=== PATIENT | female | born 1985 | race Caucasian/White ===

== ENCOUNTER 2020-05-26 10:34 | Outpatient (CLI) | payer OTHER, SELFPAY ==
[2020-05-26 11:01] LABS: Hematocrit 34.6 % (37.0-47.0); Hemoglobin 11.3 g/dL (12.0-15.0); Mean Corpuscular HGB Conc 32.7 g/dl (32-36); Mean Corpuscular Hemoglobin 27.4 pg (26-34); Mean Platelet Volume 9.8 fl (7.4-10.4); Platelet Count Result 318 k/mm3 (150-375); Red Blood Count 4.12 M/mm3 (4.2-5.4); Red Cell Distribution Width 14.7 % (11.5-14.5); White Blood Count 13.3 K/mm3 (4.5-10.0)
[2020-05-28 07:10] LABS: Rapid Plasma Reagin Non-Reactive (NonReactive)
== END 2020-05-26 10:35 | disposition home or self-care (01) ==
PROVIDERS: PCP Internal Medicine; Visit Provider Obstetrics & Gynecology
DX: Z34.93 Encounter for supervision of normal pregnancy, unspecified, third trimester (principal); Z3A.00 Weeks of gestation of pregnancy not specified
CPT/HCPCS: 36415; 85027; 86592; 86850; 86900; 86901

== ENCOUNTER 2020-05-28 05:30 | Inpatient (IN) | payer OTHER, SELFPAY ==
--- NOTE | 2020-05-23 11:08 | PM.IMHP ---
H&P: HPI History of Present Illness Date/Time: 05/23/20 11:08 Chief Complaint: repeat section and tubal Narrative: 2 para 1 who is admitted at term for repeat section and tubal ligation. Her has been uncomplicated. She desires permanent and irreversible sterilization. S and benefits reviewed in full per minutes was reviewed in full. She had all questions answered asked to proceedTifyuly Morales is a 34 year old female Review of Systems Review of Systems: All systems reviewed & are unremarkable except as noted in HPI and below PMFSH Family History Family History Other No pertinent family history Social History Social History Substance use: never Gender identity (if verbalized by the patient): Female Spiritual care concerns: No Meds Home Medications and Allergies Home Medications Medication Instructions Recorded Confirmed Type PNV cmb#95-ferrous fumarate-FA 1 tablet PO DAILY 05/12/20 05/12/20 History [] sertraline 50 mg PO DAILY 05/12/20 05/12/20 History Allergies Allergy/AdvReac Type Severity Reaction Status Date / Time cefaclor Allergy Unknown Verified 10/17/18 12:45 Exam Const: General: no acute distress Eyes: General: appearance normal, both eyes and all related structures Neck: Neck: supple and no JVD Thyroid: thyroid normal Resp: Effort & Inspection: normal respiratory effort Auscultation: clear to auscultation bilaterally Cardio: Rate: regular rate Rhythm: regular rhythm GI: Inspection: non-distended GI Palp: Yes Soft to palpation, No Tenderness to palpation present (GI) and No Guarding due to palpation present (GI) Auscultation: normal bowel sounds : General: Yes bladder normal to palpation External Female Exam: normal external appearance Speculum Exam - Vagina: normal vaginal discharge and No vaginal bleeding Speculum Exam - Cervix: nontender Bimanual exam- vagina & uterus: bladder normal to palpation and No Cervical tenderness present OB/external & speculum: No vaginal bleeding Skin: General skin exam: no rashes or lesions noted Extrem: General: normal to inspection and no edema Psych: Mental Status: mental status grossly normal Affect: normal affect Assessment and Plan Additional Plan impression: Term with previous section and desires permanent sterilization Plan: Repeat section and bilateral tubal removal
[2020-05-28] VITALS (55 sets, daily range): BP systolic 88–134; BP diastolic 50–94; PULSE 55–151; RESP 15–18; TEMP 36.6–37.2; O2SAT 90–100
--- NOTE | 2020-05-28 06:21 | WPDHPUPDATE1 ---
History and Physical Update Update Date/Time: 05/28/20 06:21 History and Physical has been reviewed, including an updated exam of the patient. There are NO changes in the patient's condition. Risks, benefits, and alternatives have been discussed and questions answered. Patient agrees to proceed with procedure.
--- NOTE | 2020-05-28 06:30 | LDADM ---
This patient, Miroslava Morales, was admitted to Labor/Delivery/Recovery 120 on 05/28/20 at 05:30. Plans for labor, pain management and were discussed with patient. Patient/family oriented to hospital policies and general routines including ID bracelet, bed and alarms, visiting hours, pain management, procedures, bathroom and other care routines, personal items, smoking policy, room service/diet and guest tray routines, security routines, and visiting hours. Patient/Family are encouraged to report perceived risks to care and to ask questions if they do not understand what they are told or what they should do. See OBIX for further documentation.
--- NOTE | 2020-05-28 06:38 | WPDANESEPPF ---
Anes - Initial Pre Proc Eval Procedure: Operation Date: 05/28/20 07:30 Proposed Procedures p Repeat Section, Bilateral Tubal Ligation With Cautery - Jose Toro MD Date/Time: 05/28/20 06:38 Surgeon: Jose Toro MD Pre Op Diagnosis: C/S Patient Data Age: 34 Gender: F Height: 5 ft 4 in Weight: 80.6 kg Last Vital Signs Pulse 89 05/28/20 06:22 BP 115/86 05/28/20 06:22 Allergies Allergy/AdvReac Type Severity Reaction Status Date / Time cefaclor Allergy Unknown Verified 10/17/18 12:45 Home Medications Medication Instructions Recorded Confirmed Type PNV cmb#95-ferrous fumarate-FA 1 tablet PO DAILY 05/12/20 05/12/20 History [] sertraline 50 mg PO DAILY 05/12/20 05/12/20 History hydrocodone-acetaminophen [[place]] 1 tablet PO Q4H PRN #30 tablet 05/28/20 Rx Patient hx anesthesia problems: none Family hx anesthesia problems: none PMFSH Surgical History Surgical History History of section Family History Family History Other No pertinent family history Social History Social History Substance use: never Gender identity (if verbalized by the patient): Female Spiritual care concerns: No Anes - Eval Final PreProcedure Day of Procedure 05/28/20 06:38 Patient weight: overweight Heart: regular rate and rhythm Lungs: clear to auscultation Airway: Mallampati scale class 1 Neurological: alert and oriented Last oral intake: >/= 8 hours ASA classification: II Emergent: no Anesthetic plan: proceed Anesthesia type and monitoring: regional spinal and standard monitoring Informed Consent: The patient's anesthetic plan and its attendant risks and benefits were discussed with the patient/family/POA. Questions were solicited and answers provided to the satisfaction of the patient/family/POA.
[2020-05-28] MEDS: LACTATED RINGERS 1,000 ML 125 ML IV CONT (06:48)
[2020-05-28] MEDS: CLINDAMYCIN 900 MG/D5W 50 ML 900 MG/50 ML PIGGYBACK 50 MG IVPB (07:09)
--- NOTE | 2020-05-28 08:07 | P.OP_ITS ---
Procedure Note - Detailed Date of procedure: 05/28/20 Pre-op diagnosis: C/S Surgeon: Jose Toro MD Postop diagnosis: Term /previous section /a desires permanent sterilization Procedure: Repeat low-transverse section/bilateral tubal ligation via modified [place] method Q BL: 325cc Findings: Male , Apgars 9 and 9 at 1 and 5 minutes respectively 8 lb 6 oz. Anesthesia: Spinal Complications: None Description of procedure.: The patient was prepped and draped in the normal sterile fashion placed in the supine position. Under excellent spinal anesthetic the abdomen was entered in Pfannenstiel fashion progressive layers to the fascia. Fascia was incised in upward outward fashion bilaterally. Underlying muscles prior to. He mm Janell clamps. This was opened superiorly then inferiorly to the dome of the bladder. Bladder blade was placed. A bladder flap formed. The bladder blade returned. Low-transverse incision made in the head delivered in the RODRIGO position. Anterior posterior shoulder delivered spontaneously. Cord clamped x2 and cut infant passed off the table with excellent cry. Placenta was delivered intact manually. Uterus delivered on the abdomen wrapped in a moist towel. After assuring no membranes or debris made in the uterus, the uterus was closed with continuous running locking 0 Vicryl from lateral edge lateral edge followed by a 2nd imbricating running locking 0 Vicryl from lateral edge to lateral edge. Hemostasis was assured. The right fallopian tube was grasped a good knuckle of tube formed and free tied at its midportion the peritoneum between was pierced in the distal and proximal portions free tied with 0 chromic bilaterally the portion of tube between cut passed off the table and passed off as portion of right fallopian tube. Hemostasis was assured the left fallopian tube was grasped at its midpor tion a good knuckle of tube free tied with 0 chromic. The peritoneum between pierced and the distal and proximal legs were free tied with 0 chromic. The portion between cut and passed off as portion of left fallopian tube. Hemostasis was assured the uterine incision inspected 1 last time noted be hemostatic. In the uterus returned to the abdomen. The laps removed and accounted for and blood loss estimated. The fascia closed with continuous running 0 Vicryl from lateral edge to midline bilaterally. Irrigation subcutaneous layer and the skin closed with 4 Monocryl glue. The patient was t aken to recovery in satisfactory condition. All sponge, needle, instrument counts were correct. There were no immediate complications
[2020-05-28] MEDS: OXYTOCIN 30 UNITS/NS 500 ML 30 UNITS/500 ML BAG 125 UNITS IV CONT (08:40)
[2020-05-28] MEDS: fentaNYL CITRATE INJ (*CRX) 100 MCG/2 ML VIAL 25 MCG IV PUSH (10:07)
--- NOTE | 2020-05-28 11:15 | PC.NURSE ---
Patient transferred to post room #281 via stretcher. Support person present. Oriented to unit, room, information board, rooming in, admission packet and security measures. Patient verbalizes understanding.
[2020-05-28] MEDS: KETOROLAC 30 MG/ML VIAL (*BKC) IV PUSH (11:34)
[2020-05-28] MEDS: ALPRAZolam (*CRX) 0.5 MG TABLET PO (12:17)
[2020-05-28] MEDS: DEXTROSE 5%/0.45% SOD CHL 1,000 ML 125 ML IV CONT (13:17)
--- NOTE | 2020-05-28 14:02 | PC.NURSE ---
Infant remains at nurse's station, mom bottlefeeding at this time. Mom currently napping. Was in pain after arriving to the unit.
[2020-05-28] MEDS: SIMETHICONE 80 MG TAB.CHEW PO ×2 (17:33→23:24)
[2020-05-28] MEDS: DOCUSATE SODIUM 100 MG CAPSULE PO (17:33)
[2020-05-28] MEDS: HYDROcodone/acetaminophen (*CRX) 10-325 MG TABLET 1 TAB PO (17:34)
[2020-05-28] MEDS: IBUPROFEN 600 MG TABLET PO ×2 (17:34→23:23)
[2020-05-28] MEDS: HYDROcodone/acetaminophen (*CRX) 5-325 MG TABLET 1 TAB PO (23:24)
[2020-05-29 00:35] VITALS: BP 115/70; PULSE 67; RESP 16; TEMP 36.2; O2SAT 98
[2020-05-29 04:35] VITALS: BP 96/56; PULSE 72; RESP 16; TEMP 36.3; O2SAT 97
[2020-05-29 04:53] LABS: Basophils Absolute Auto 0.1 K/mm3 (0.0-0.1); Basophils Percent Auto 0.3 % (0.2-1.2); Eosinophils Absolute Auto 0.1 K/mm3 (0-0.3); Eosinophils Percent Auto 0.5 % (0-4.4); Hematocrit 27.7 % (37.0-47.0); Hemoglobin 8.8 g/dL (12.0-15.0); Immature Granulocyte Percent A 1.7 % (0-0.5); Lymphocytes Absolute Auto 2.62 K/mm3 (0.9-3.2); Lymphocytes Percent Auto 11.4 % (18.3-44.2); Mean Corpuscular HGB Conc 31.8 g/dl (32-36); Mean Corpuscular Hemoglobin 26.7 pg (26-34); Mean Corpuscular Volume 83.9 fl (80-100); Mean Platelet Volume 9.8 fl (7.4-10.4); Monocytes Absolute Auto 2.2 K/mm3 (0.1-0.6); Monocytes Percent Auto 9.8 % (2.6-8.5); Neutrophils Absolute Auto 17.5 K/mm3 (1.3-6.7); Neutrophils Percent Auto 76.3 % (45.5-73.1); Platelet Count Result 292 k/mm3 (150-375); Red Cell Distribution Width 14.7 % (11.5-14.5); White Blood Count 22.9 K/mm3 (4.5-10.0)
--- NOTE | 2020-05-29 06:06 | PM.OBPNVD ---
OB - PN: Subj Subjective Date/time seen: 05/29/20 06:06 Patient comments: no complaints and pain well controlled baby status: doing well and nursing well OB - PN: Obj Data Labs CBC & Chem 7: 05/29/20 04:43 Labs: Laboratory Results - last 24 hr 05/29/20 04:43 WBC 22.9 H RBC 3.30 L Hgb 8.8 L Hct 27.7 L MCV 83.9 MCH 26.7 MCHC 31.8 L RDW 14.7 H Plt Count 292 MPV 9.8 Immature Gran % (Auto) 1.7 H Neut % (Auto) 76.3 H Lymph % (Auto) 11.4 L [place] % (Auto) 9.8 H Eos % (Auto) 0.5 Baso % (Auto) 0.3 Lymph # (Auto) 2.62 [place] # (Auto) 2.2 H Eos # (Auto) 0.1 Baso # (Auto) 0.1 Abs Immat Gran (auto) 0.40 H Absolute Neuts (auto) 17.5 H Absolute Nucleated RBC 0.0 Nucleated RBC % 0.0 OB - PN A/P Plan day: 1 Plan: routine care Time Spent With Patient Time: Total time spent is greater than 50% in coordination of care (as documented) at patient's floor/unit and/or counseling patient: Time with patient: less than 15 minutes Review of Systems Review of Systems: All systems reviewed & are unremarkable except as noted in HPI and below Exam Const: General: no acute distress Eyes: General: appearance normal, both eyes and all related structures Neck: Neck: supple and no JVD Thyroid: thyroid normal Resp: Effort & Inspection: normal respiratory effort Auscultation: clear to auscultation bilaterally Cardio: Rate: regular rate Rhythm: regular rhythm GI: Inspection: non-distended and incision (cdi) GI Palp: Yes Soft to palpation, No Tenderness to palpation present (GI) and No Guarding due to palpation present (GI) Auscultation: normal bowel sounds : General: Yes bladder normal to palpation External Female Exam: normal external appearance Speculum Exam - Vagina: normal vaginal discharge and No vaginal bleeding Speculum Exam - Cervix: nontender Bimanual exam- vagina & uterus: bladder normal to palpation and No Cervical tenderness present OB/external & speculum: No vaginal bleeding Skin: General skin exam: no rashes or lesions noted Extrem: General: normal to inspection and no edema Psych: Mental Status: mental status grossly normal Affect: normal affect
[2020-05-29] MEDS: IBUPROFEN 600 MG TABLET PO ×3 (06:14→21:00)
[2020-05-29] MEDS: HYDROcodone/acetaminophen (*CRX) 5-325 MG TABLET 1 TAB PO ×5 (06:15→21:00)
[2020-05-29 07:50] VITALS: BP 109/74; PULSE 65; RESP 16; TEMP 36.4; O2SAT 100
[2020-05-29] MEDS: POLYSACCHARIDE IRON COMPLEX 150 MG CAPSULE PO ×2 (07:52→17:18)
[2020-05-29] MEDS: DOCUSATE SODIUM 100 MG CAPSULE PO ×2 (07:53→17:18)
[2020-05-29] MEDS: SERTRALINE HCL 50 MG TABLET PO (07:53)
[2020-05-29] MEDS: SIMETHICONE 80 MG TAB.CHEW PO ×4 (07:53→22:07)
[2020-05-29] MEDS: MULTIVIT/MIN/PREN/FOL AC/IRON TABLET 1 TAB PO (07:53)
--- NOTE | 2020-05-29 07:58 | WPDANLDPN2 ---
Anes-Prog Note L&D Date/Time: 05/29/20 07:58 Comfortable throughout: section Neuraxial method: spinal Epidural/Spinal procedure site: clean & non-tender Neuro status: Neuro function grossly intact. Cardiovascular status: normal Respiratory status: normal Airway patency: baseline Mental status: baseline Post-Op hydration status: normal Vital Signs: Last Vital Signs Temp 36.3 C L 05/29/20 04:35 Pulse 72 05/29/20 04:35 Resp 16 05/29/20 04:35 BP 96/56 L 05/29/20 04:35 Pulse Ox 97 05/29/20 04:35 Pain score (VAS): 0 I/O: Intake & Output 05/28/20 05/28/20 05/29/20 15:59 23:59 07:59 Intake Total 1100 1513 1600 Output Total 368 1250 5415 Balance 732 263 -1175 Post-procedural complaints: none Patient feedback: Patient satisfied with anesthetic care.
--- NOTE | 2020-05-29 07:58 | WPDANLDNPN2 ---
Anes-Prog Note L&D-Neuraxial Date/Time: 05/29/20 07:58 Neuraxial medications: intrathecal PF morphine Opiod-related complaints: none Patient feedback: Patient satisfied with post-operative pain management.
--- NOTE | 2020-05-29 09:51 | PC.NURSE ---
Consulted with patient, reviewed feeding cues, frequencies, duration of feedings, feeding elimination flow sheet, and signs of adequate intake. Mom is bottle and infant. Mom encouraged to call out with next breastfeed to have feeding assessed. Reviewed supply and demand of breastmilk production with Mom & Dad. Offered to bring in pump and and help mom start pumping, mom declines. Nipple care reviewed. Instructed mother to call out for RN assistance if she is unable to latch for feeding or she has discomfort with nursing. Instructed feeding should be initiated three hours from start of last feeding or if feeding cues are noted before when . Mother voiced understanding of information shared.
--- NOTE | 2020-05-29 10:54 | PC.NURSE ---
Primary RN states she was at bedside and mom was struggling to get to breast. In to see patient and mom states she was giving the baby a bottle and stated that she didn't want to attempted at breast again for this feeding. Mom encouraged to call out if she would like assistance with the next feeding.
[2020-05-29 20:00] VITALS: BP 111/69; PULSE 78; RESP 16; TEMP 36.8; O2SAT 98
[2020-05-30] MEDS: IBUPROFEN 600 MG TABLET PO ×2 (03:00→10:11)
[2020-05-30] MEDS: SIMETHICONE 80 MG TAB.CHEW PO ×4 (03:00→13:43)
[2020-05-30] MEDS: HYDROcodone/acetaminophen (*CRX) 5-325 MG TABLET 1 TAB PO ×4 (03:00→13:42)
--- NOTE | 2020-05-30 06:33 | P.PNOB_ITS ---
OB - PN: Subj Subjective Date/time seen: 05/30/20 06:33 Patient comments: no complaints and pain well controlled baby status: doing well and nursing well OB - PN: Obj Data Labs CBC & Chem 7: 05/29/20 04:43 OB - PN A/P Plan day: 2 Plan: routine care Time Spent With Patient Time: Total time spent is greater than 50% in coordination of care (as francisco ndiaye) at patient's floor/unit and/or counseling patient: Time with patient: less than 15 minutes Review of Systems Review of Systems: All systems reviewed & are unremarkable except as noted in HPI and below Exam Const: General: no acute distress Eyes: General: appearance normal, both eyes and all related structures Neck: Neck: supple and no JVD Thyroid: thyroid normal Resp: Effort & Inspection: normal respiratory effort Auscultation: clear to auscultation bilaterally Cardio: Rate: regular rate Rhythm: regular rhythm GI: Inspection: non-distended GI Palp: Yes Soft to palpation, No Tenderness to palpation present (GI) and No Guarding due to palpation present (GI) Auscultation: normal bowel sounds : General: Yes bladder normal to palpation External Female Exam: normal external appearance Speculum Exam - Vagina: normal vaginal discharge and No vaginal bleeding Speculum Exam - Cervix: nontender Bimanual exam- vagina & uterus: bladder normal to palpation and No Cervical tenderness present OB/external & speculum: No vaginal bleeding Skin: General skin exam: no rashes or lesions noted Extrem: General: normal to inspection and no edema Psych: Mental Status: mental status grossly normal Affect: normal affect
[2020-05-30] MEDS: POLYSACCHARIDE IRON COMPLEX 150 MG CAPSULE PO (06:34)
[2020-05-30] MEDS: MULTIVIT/MIN/PREN/FOL AC/IRON TABLET 1 TAB PO (06:34)
[2020-05-30] MEDS: SERTRALINE HCL 50 MG TABLET PO (06:34)
[2020-05-30] MEDS: DOCUSATE SODIUM 100 MG CAPSULE PO (06:35)
[2020-05-30 07:25] VITALS: BP 108/71; PULSE 67; RESP 18; TEMP 36.8; O2SAT 96
--- NOTE | 2020-05-30 13:08 | PM.DS ---
DS: Admitting Diagnosis Admitting Diagnosis Admitting Diagnosis: t id a term IUP/desires sterilization DS: Summary Hospital Course Hospital Course: Unremarkable Time Spent with Patient Time attestation: Total time spent providing and/or coordinating discharge services: the patient was admitted for repeat section tubal ligation. Her postop course was unremarkable. She remained afebrile. She was , waited the difficulty, eating, ambulating and generally without complaints. Exam Const: General: no acute distress Eyes: General: appearance normal, both eyes and all related structures Neck: Neck: supple and no JVD Thyroid: thyroid normal Resp: Effort & Inspection: normal respiratory effort Auscultation: clear to auscultation bilaterally Cardio: Rate: regular rate Rhythm: regular rhythm GI: Inspection: non-distended GI Palp: Yes Soft to palpation, No Tenderness to palpation present (GI) and No Guarding due to palpation present (GI) Auscultation: normal bowel sounds : General: Yes bladder normal to palpation External Female Exam: normal external appearance Speculum Exam - Vagina: normal vaginal discharge and No vaginal bleeding Speculum Exam - Cervix: nontender Bimanual exam- vagina & uterus: bladder normal to palpation and No Cervical tenderness present OB/external & speculum: No vaginal bleeding Skin: General skin exam: no rashes or lesions noted Extrem: General: normal to inspection and no edema Psych: Mental Status: mental status grossly normal Affect: normal affect DS: Data Data Completed and Pending Completed studies during hospitalization: Pending at discharge 05/28/20 08:34 Surgical [PTH] Routine Discharge Plan Discharge Attending physician on discharge: Jose Toro Discharging Clinician: Jose Toro Patient Disposition: Home, Self-Care Activity: may shower, no straining, may drive after 2 weeks and pelvic rest Diet: heart healthy Wound Care Instructions: follow printed instructions Discharge Instructions: Education: Mom and Baby Guide Given to: Mother Follow-Up: Call your delivering provider's office for an appointment to be seen in: 6 Weeks [facility]. Appointment Date/Time: June 01, 2020 at 10:00 am What to expect at your follow-up visit: Physical Assessment Call [phone] if you are unable to keep your appointment time. BREAST CARE: * Wear a snug supportive bra. * For engorgement discomfort: Breast Feeding: * Apply warm moist washcloths * Express milk as needed to relieve engorgement * Wear loose clothing * For sore nipples: * Identify correct latch-on * Apply warm moist washcloths before and after nursing * Air dry nipples after nursing * May apply Lansinoh cream to nipples ABDOMINAL INCISION: (if applicable) * Allow incision to air dry * Do NOT use lotions for powders on your incision * When showering, allow soap and water to run over the incision, but do not wash incision EPISIOTOMY/PERINEAL CARE: * Until bleeding stops, use your tong bottle after urinating * Change your pad frequently throughout the day * You may take sitz baths several times a day (fill your bathtub with warm water and soak for 20 minutes.) Do NOT bathe in the water * No tub baths until seen by your physician - You may shower ACTIVITY: * Rest as much as possible. * Do not exercise or lift anything heavier than your baby (such as laundry or other children.) * Avoid stairs or driving as much as possible. * Do not put anything into the vagina. No douching, tampons, or sexual activity until seen by physician. NOTIFY PHYSICIAN IF YOU HAVE ANY QUESTIONS OR IF ANY OF THE FOLLOWING SYMPTOMS OCCUR: * If your incision becomes red, swollen, or more painful than what you have
[2020-06-01 10:24] VITALS: BP 129/74; PULSE 94; RESP 20; TEMP 37; O2SAT 100
== END 2020-05-30 14:05 | disposition home or self-care (01) | DRG 785 ==
LOC: ANHLDR 05:34 → ANHOB2 10:25
PROVIDERS: Admitting Provider Obstetrics & Gynecology; PCP Internal Medicine; Visit Provider Obstetrics & Gynecology
PROC: 10D00Z1 Extraction of Products of Conception, Low, Open Approach (ICD-10-PCS; CPT 59514; principal; 2020-05-28 07:30)
DX: O34.211 Maternal care for low transverse scar from previous cesarean delivery (principal); Z30.2 Encounter for sterilization; Z3A.39 39 weeks gestation of pregnancy; Z37.0 Single live birth
CPT/HCPCS: 36415; 85025; 85027; 86592; 86850; 86900; 86901; 88302; A9270; J0131; J1100; J1885; J2274; J2370; J2405; J2590; J3010; J7120

== ENCOUNTER 2020-12-03 17:19 | Emergency (ER) | payer OTHER, SELFPAY ==
[2020-12-03 17:30] VITALS: BP 132/85; PULSE 75; RESP 18; TEMP 37.1; O2SAT 100
--- NOTE | 2020-12-03 17:39 | ED.GENADULT ---
HPI - General Adult General Chief complaint: Upper Respiratory Infection Stated complaint: upper respiratory infection Time Seen by Provider: 12/03/20 17:39 Source: patient and RN notes reviewed Mode of arrival: ambulatory Limitations: no limitations History of Present Illness HPI narrative: 35-year-old female presents with complaints of upper respiratory infection, some facial congestion, facial pressure, and intermittent headache (not the worst of her life) for the past 21 days. ?Miroslava reports increasing symptoms even after being treated with a Z-pack. Mucinex-D without relief. No facial swelling.? No cough or chest congestion. ?Nasal congestion and rhinorrhea. ?No sore throat. No high fevers, drooling, neck or throat swelling. No voice change. ?No nausea, vomiting, or abdominal pain. ?Tolerating liquids well. ?Denies chills, dyspnea, difficulty swallowing, jaw pain, dental pain, foreign body sensation, and rash. ?No chest pain or shortness of breath. LMP 11/30/2020. Remains active. The patient reports she has not been diagnosed with COVID-19. The patient reports she is not waiting for the results of a COVID-19 lab test. The patient reports she does not have weakness, fatigue, or myalgia. The patient reports he does not have any loss of taste and diarrhea. Denies recent traveling. Denies concerns for COVID-19 or exposures. At this time, the patient is not suspected of having COVID-19.? ? Some parts of this dictation were generated by voice recognition software and may contain typographical and/or grammatical inaccuracies. Related Data Home Medications Medication Instructions Recorded Confirmed sertraline 50 mg PO DAILY 05/12/20 12/03/20 Allergies Allergy/AdvReac Type Severity Reaction Status Date / Time cefaclor Allergy Mild Hives Verified 12/03/20 17:37 Review of Systems Review of Systems: Narrative: CONSTITUTIONAL: Denies fever, chills, sweats. EYES: Denies visual changes, redness, discharge. ENT: Complains of rhinorrhea, congestion, facial congestion and pressure. Denies otalgia, sore throat. CARDIOVASCULAR: Denies chest pain, palpitations, edema. RESPIRATORY: Denies dyspnea, wheezing, cough. GASTROINTESTINAL: Denies abdominal pain, nausea, vomiting, diarrhea. SKIN: Denies rash or itching. MUSCULOSKELETAL: Denies acute back pain, joint pain, or myalgia. NEUROLOGIC: Denies numbness or focal weakness. Complains of intermittent CASEY. PSYCHIATRIC: Denies anxiety or depression. All other systems reviewed & are unremarkable except as noted in HPI and below. [facility] Past Medical History Medical History (Updated 12/04/20 @ 00:01 by Sharon Watters) delivery delivered Surgical History Surgical History (Updated 12/03/20 @ 17:55 by DEYSI Amor) History of section X2 Family History Family History (Updated 12/03/20 @ 17:55 by DEYSI Amor) Father Alive and well Mother Alive and well Other No pertinent family history Social History Social History (Updated 12/03/20 @ 17:56 by DEYSI Amor) Smoking status: Never smoker Tobacco type: cigarettes Second hand tobacco smoke exposure: No Alcohol intake: current Substance use: never Substance use type: does not use Living arrangements: with family Occupation/Education: occupation Gender identity (if verbalized by the patient): Female Sexual Orientation (if Verbalized by the Patient): Straight or Heterosexual Spiritual care concerns: No Comments At time of signature, agree with the nurse past medical, surgical, social, and family history. There is no relevant family history pertinent to the presenting complaint. Exam Narrative: Exam Narrative: GENERAL: This is a well-nourished, well-developed patient, in no apparent distress. Talks in full sentences and ambulates with steady gait without dyspnea. HEAD: Normocephalic, atraumatic. EYES: PERRL. Sclera clear/white. Vision is
== END 2020-12-03 18:15 | disposition home or self-care (01) ==
PROVIDERS: Emergency Provider Nurse Practitioner Family; PCP Internal Medicine
DX: J32.9 Chronic sinusitis, unspecified (principal); F32.9 Major depressive disorder, single episode, unspecified
CPT/HCPCS: 99213; G0463

== ENCOUNTER 2021-01-25 17:41 | Emergency (ER) | payer OTHER, SELFPAY ==
[2021-01-25 17:53] VITALS: BP 111/63; PULSE 124; RESP 18; TEMP 39.4; O2SAT 100
--- NOTE | 2021-01-25 18:02 | ED.URI ---
HPI - URI/Sore Throat General Chief Complaint: Upper Respiratory Infection Stated Complaint: SORE THROAT/BODY ACHES/CHILLS Source: patient Mode of arrival: ambulatory Limitations: no limitations History of Present Illness HPI Narrative: Patient is a 35-year-old female who presents complaining of worsening sinus infection and increasing sore throat. Patient was seen PCP office approximately 3 days ago and given a prescription for Augmentin. She reports antibiotics are not working and symptoms are increasing with increasing sore throat. She also reports headache. She reports taking [id number] medications this a.m. and reports symptoms have been increasing. Patient is febrile upon arrival. Patient is unvaccinated for Covid but denies known exposure to Covid. MD elicited complaint: fever and sore throat Related Data Home Medications Medication Instructions Recorded Confirmed sertraline 50 mg PO DAILY 05/12/20 12/03/20 Allergies Allergy/AdvReac Type Severity Reaction Status Date / Time cefaclor Allergy Mild Hives Verified 01/25/21 17:44 Review of Systems Review of Systems: CONSTITUTIONAL: Reports fever EYES: Denies visual changes, redness, or discharge. ENT: Reports rhinorrhea, congestion, sore throat, and facial pressure. CARDIOVASCULAR: Denies chest pain, palpitations, or edema. RESPIRATORY: Denies cough or dyspnea. GASTROINTESTINAL: Denies abdominal pain, nausea, vomiting, or diarrhea. GENITOURINARY: Denies dysuria or hematuria. SKIN: Denies rash or itching. MUSCULOSKELETAL: Denies back pain, joint pain, or myalgia. NEUROLOGIC: Denies headache, numbness, dizziness, or weakness. PSYCHIATRIC: Denies anxiety or depression. [facility] Past Medical History Medical History delivery delivered Surgical History Surgical History History of section X2 Family History Family History Father Alive and well Mother Alive and well Other No pertinent family history Social History Social History Smoking status: Never smoker Tobacco type: cigarettes Second hand tobacco smoke exposure: No Alcohol intake: current Substance use: never Substance use type: does not use Gender identity (if verbalized by the patient): Female Sexual Orientation (if Verbalized by the Patient): Straight or Heterosexual Spiritual care concerns: No Comments At the time of signature, I have reviewed and agree with nursing past medical, surgical, social, and family history unless otherwise noted. Please see nursing chart for further information. There is no relevant family history pertinent to the presenting complaint. Exam Narrative: GENERAL: Well-appearing, well-nourished, and in no acute distress. HEAD: Normocephalic, atraumatic. EYES: EOMI. No redness or drainage. Conjunctiva are normal. ENT: Mucous membranes pink and moist. Nares clear. No rhinorrhea. Throat with moderate erythema and edema. Uvula midline. NECK: AROM. Supple. No lymphadenopathy. CHEST: No respiratory distress. HEART: Regular rate and rhythm. EXTREMITIES: Normal range of motion. No edema. SKIN: Warm, dry, no rash. NEURO: No focal deficits. Alert and oriented x3. Gait steady. PSYCH: Normal affect. No signs of depression or anxiety. Course Vital Signs Vital signs: Vital Signs Temperature 39.4 C H 01/25/21 17:53 Pulse Rate 124 H 01/25/21 17:53 Respiratory Rate 18 01/25/21 17:53 Blood Pressure 111/63 01/25/21 17:53 Pulse Oximetry 100 01/25/21 17:53 Temperature 39.4 C H 01/25/21 17:53 Pulse Rate 124 H 01/25/21 17:53 Respiratory Rate 18 01/25/21 17:53 Blood Pressure 111/63 01/25/21 17:53 Pulse Oximetry 100 01/25/21 17:53 MDM - URI/Sore Throat MDM Narrative Medical
== END 2021-01-25 18:17 | disposition home or self-care (01) ==
PROVIDERS: Emergency Provider Nurse Practitioner; PCP Internal Medicine
DX: J06.9 Acute upper respiratory infection, unspecified (principal); J02.9 Acute pharyngitis, unspecified; Z20.822 Contact with and (suspected) exposure to COVID-19
CPT/HCPCS: 87426; 99213; C9803; G0463

== ENCOUNTER 2021-06-12 18:16 | Emergency (ER) | payer OTHER, SELFPAY ==
[2021-06-12 18:22] VITALS: BP 123/78; PULSE 79; RESP 16; TEMP 36.7; O2SAT 100
--- NOTE | 2021-06-12 18:50 | ED.GENADULT ---
HPI - General Adult General Chief complaint: Upper Respiratory Infection Stated complaint: nausea,headache Time Seen by Provider: 06/12/21 18:50 Source: patient, RN notes reviewed and old records reviewed Mode of arrival: ambulatory Limitations: no limitations History of Present Illness HPI narrative: 35 year old female who present to [facility] care with complaints of nausea, vomiting, and headache with sensitivity to light which restarted today. Patient states that she had COVID 3 weeks ago and she reports that on the she saw her PCP and he gave her a steroid shot and amoxicillin for sinus infection which she could not complete. She then developed nausea and vomiting diarrhea.Patient states on she went to [facility] in [place] and got IV fluids for dehydration and also Zofran, states she did not fill the Zofran because caused constipation when she was . Today she states she has vomited twice and has been nauseated all day. Patient states that headache has been intermittent since Thursday. MD complaint: nausea and headache Onset (ago): day(s) Related Data Home Medications Medication Instructions Recorded Confirmed sertraline 50 mg PO DAILY 05/12/20 06/12/21 Allergies Allergy/AdvReac Type Severity Reaction Status Date / Time cefaclor Allergy Mild Hives Verified 06/12/21 18:24 Review of Systems Review of Systems: CONSTITUTIONAL: Denies fever, chills, or sweats. EYES: Denies visual changes, redness, or discharge, some sensitivity to light when she has headache ENT: Denies rhinorrhea, congestion, sore throat, or otalgia. CARDIOVASCULAR: Denies chest pain, palpitations, or edema. RESPIRATORY: Denies cough or dyspnea. GASTROINTESTINAL: Denies abdominal pain,positive for nausea, vomiting, no diarrhea. GENITOURINARY: Denies dysuria or hematuria. SKIN: Denies rash or itching. MUSCULOSKELETAL: Denies back pain, joint pain, or myalgia. NEUROLOGIC: Positive headache,no numbness, or weakness. PSYCHIATRIC: Positive history anxiety or depression. All systems reviewed & are unremarkable except as noted in HPI and below PMFSH Past Medical History Medical History Anxiety delivery delivered Surgical History Surgical History History of section X2 Family History Family History Father Alive and well Mother Alive and well Other No pertinent family history Social History Social History Smoking status: Never smoker Tobacco type: cigarettes Second hand tobacco smoke exposure: No Alcohol intake: current Substance use: never Substance use type: does not use Gender identity (if verbalized by the patient): Female Sexual Orientation (if Verbalized by the Patient): Straight or Heterosexual Spiritual care concerns: No Comments At time of signature, agree with nursing past medical, surgical, social and family history. There is no relevant family history pertinent to the presenting complaint Exam Narrative: GENERAL: Well-appearing, well-nourished, and in no acute distress. HEAD: Normocephalic, atraumatic. EYES: PERRLA and EOMI. ENT: Nares clear, no rhinorrhea or epistaxis. Mucous membranes moist. TMs normal with good light reflex throat pink with no lesions or exudates NECK: Supple. No lymphadenopathy CHEST: Clear to auscultation. No respiratory distress. SaO2 100% on room air HEART: Regular rate and rhythm. No murmur heard. Normal peripheral pulses. ABDOMEN: Soft, nontender on palpation, nondistended, normal active bowel sounds. EXTREMITIES: Normal range of motion. No edema. SKIN: Warm, dry, no rash. NEURO: No focal deficits. Alert and oriented x3, verbalizes some headache discomfort has not tried any OTC meds Course Course Level of Care: Expre
[2021-06-12] MEDS: ONDANSETRON HCL ODT 4 MG TABLET SUBLINGUAL (19:07)
== END 2021-06-12 19:27 | disposition home or self-care (01) ==
PROVIDERS: Emergency Provider Registered Nurse; PCP Internal Medicine
DX: B34.9 Viral infection, unspecified (principal); R11.2 Nausea with vomiting, unspecified; F41.9 Anxiety disorder, unspecified
CPT/HCPCS: 87804; 99213; A9270; G0463

== ENCOUNTER 2022-06-13 02:49 | Day surgery (SDC) | payer OTHER, SELFPAY ==
[2022-06-04 15:11] VITALS: BMI 22.3
--- NOTE | 2022-06-13 10:12 | P.PNAN_ITS ---
Anes - Initial Pre Proc Eval Procedure: Operation Date: 06/13/22 11:45 Proposed Procedures p Esophagogastroduodenoscopy - Sb Guerra MD Date/Time: 06/13/22 10:12 Surgeon: Sb Guerra MD Pre Op Diagnosis: bloating, GERD Patient Data Age: 36 Gender: F Height: 1.63 m Weight: 59 kg Allergies Allergy/AdvReac Type Severity Reaction Status Date / Time cefaclor Allergy Mild Hives Verified 06/13/22 10:52 Home Medications Medication Instructions Recorded Confirmed Type pantoprazole 20 mg tablet,delayed 20 mg PO QAM 12/12/21 06/13/22 History release bupropion HCl 150 mg 24 hr tablet, 150 mg PO DAILY 06/04/22 06/13/22 History extended release famotidine 20 mg tablet (Pepcid AC) 20 mg PO DAILY PRN Indigestion 06/04/22 06/13/22 History sertraline 50 mg tablet 50 mg PO DAILY 06/04/22 06/13/22 History Patient hx anesthesia problems: none Family hx anesthesia problems: none Results Review: All pre-operative results and documents have been reviewed as part of the pre- operative evaluation. [facility] Past Medical History Medical History (Updated 12/12/21 @ 11:55 by Sb Guerra MD) Anxiety Bloating delivery delivered Fullness after eating GERD (gastroesophageal reflux disease) Surgical History Surgical History History of section X2 Family History Family History Father Alive and well Mother Alive and well Other No pertinent family history Social History Social History Smoking status: Never smoker Tobacco type: cigarettes Second hand tobacco smoke exposure: No Alcohol intake: current Substance use: never Substance use type: does not use Living arrangements: with family Occupation/Education: occupation Gender identity (if verbalized by the patient): Female Sexual Orientation (if Verbalized by the Patient): Straight or Heterosexual Spiritual care concerns: No Anes - Eval Final PreProcedure Day of Procedure 06/13/22 10:12 Patient weight: normal Heart: regular rate and rhythm Lungs: clear to auscultation Airway: Mallampati scale class 1 Neurological: alert and oriented Last oral intake: >/= 8 hours ASA classification: II Emergent: no Anesthetic plan: proceed Anesthesia type and monitoring: general GIVS and standard monitoring Results Review: All pre-operative results and documents have been reviewed as part of the pre- operative evaluation. Informed Consent: The patient's anesthetic plan and its attendant risks and benefits were discussed with the patient/family/POA. Questions were solicited and answers provided to the satisfaction of the patient/family/POA.
[2022-06-13 10:53] VITALS: BP 120/75; PULSE 79; RESP 16; TEMP 36.4; O2SAT 100
[2022-06-13] MEDS: LACTATED RINGERS 1,000 ML 150 ML IV CONT (10:54)
--- NOTE | 2022-06-13 11:35 | PM.HPGS ---
History of Present Illness History of Present Illness Consent: Risks, benefits, and alternatives have been discussed and questions answered. Patient agrees to proceed with procedure. Chief complaint: bloating, GERD Narrative: Miroslava Morales is a 36 year old female with dyspepsia and nausea after drinking alcohol or eating certain meals sometimes will have sour taste in mouth, using pepcid, never had egd Review of Systems Constitutional: Constitutional: Denies headache(s) and Denies weakness Eyes: Eyes: Denies blurry vision ENT: Reports Normal hearing present, Denies headache(s) and Denies neck pain Cardiovascular: Cardiovascular: Denies chest pain and Denies dyspnea Respiratory: Respiratory: Denies dyspnea Gastrointestinal: Gastrointestinal: Reports no additional gastrointestinal complaints Genitourinary: Genitourinary: Denies dysuria Musculoskeletal: Musculoskeletal: Denies neck pain Integumentary/Breasts: Skin/Breast: Denies dry skin Neurologic: Reports Normal hearing present, Denies headache(s) and Denies weakness Psychiatric: Psychiatric: Denies anxiety Endocrine: Endocrine: Denies change in body appearance Hematologic/Lymphatic: Hematologic/Lymphatic: Denies easy bleeding Allergic/Immunologic: Allergic/Immunologic: Denies urticaria PMFSH Past Medical History Medical History (Updated 12/12/21 @ 11:55 by Sb Guerra MD) Anxiety Bloating delivery delivered Fullness after eating GERD (gastroesophageal reflux disease) Surgical History Surgical History History of section X2 Family History Family History Father Alive and well Mother Alive and well Other No pertinent family history Social History Social History Smoking status: Never smoker Tobacco type: cigarettes Second hand tobacco smoke exposure: No Alcohol intake: current Substance use: never Substance use type: does not use Living arrangements: with family Occupation/Education: occupation Gender identity (if verbalized by the patient): Female Sexual Orientation (if Verbalized by the Patient): Straight or Heterosexual Spiritual care concerns: No Meds Home Medications and Allergies Home Medications Medication Instructions Recorded Confirmed Type pantoprazole 20 mg tablet,delayed 20 mg PO QAM 12/12/21 06/13/22 History release bupropion HCl 150 mg 24 hr tablet, 150 mg PO DAILY 06/04/22 06/13/22 History extended release famotidine 20 mg tablet (Pepcid AC) 20 mg PO DAILY PRN Indigestion 06/04/22 06/13/22 History sertraline 50 mg tablet 50 mg PO DAILY 06/04/22 06/13/22 History Allergies Allergy/AdvReac Type Severity Reaction Status Date / Time cefaclor Allergy Mild Hives Verified 06/13/22 10:52 Vital Signs Vital Signs - 24 hr 06/13/22 10:53 Temperature 97.6 F Pulse Rate 79 Respiratory Rate 16 Blood Pressure 120/75 Pulse Oximetry 100 Oxygen Delivery Room Air Exam Const: General: comfortable and no acute distress HENMT: Face/Nose/Sinus: Normal nares present Eyes: General: appearance normal, both eyes and all related structures Neck: Neck: no JVD Resp: Auscultation: clear to auscultation bilaterally Cardio: Rate: regular rate Rhythm: regular rhythm GI: Inspection: non-distended GI Palp: Yes Soft to palpation Skin: General skin exam: normal color Neuro: General: gait normal Speech: normal speech Extrem: General: normal to inspection Psych: Mental Status: mental status grossly normal Assessment and Plan Assessment and plan (1) Bloating: Code(s): R14.0 - Abdominal distension (gaseous) Status: Acute Assessment and Plan: egd with bx (2) GERD (gastroesophageal reflux disease): Code(s): K21.9 - Gastro-esophageal refl
[2022-06-13 11:53] VITALS: BP 103/63; PULSE 73; RESP 16; O2SAT 100
[2022-06-13 12:03] VITALS: BP 105/40; PULSE 68; RESP 14; O2SAT 100
[2022-06-13 12:13] VITALS: BP 118/78; PULSE 60; RESP 14; O2SAT 100
== END 2022-06-13 12:37 | disposition home or self-care (01) ==
PROVIDERS: PCP Physician Assistant Medical; Visit Provider Internal Medicine Gastroenterology
PROC: 0DJ08ZZ Inspection of Upper Intestinal Tract, Via Natural or Artificial Opening Endoscopic (ICD-10-PCS; CPT 43235; principal; 2022-06-13 11:45)
DX: K21.9 Gastro-esophageal reflux disease without esophagitis (principal); R14.0 Abdominal distension (gaseous); R11.0 Nausea; F41.9 Anxiety disorder, unspecified
CPT/HCPCS: 43239; 88305; J2001; J2704; J7120

== ENCOUNTER 2023-12-25 17:31 | Emergency (ER) | payer OTHER, SELFPAY ==
[2023-12-25 17:39] VITALS: BP 124/80; PULSE 73; RESP 16; TEMP 36.8; O2SAT 100
--- NOTE | 2023-12-25 17:53 | ED.SKABFB ---
HPI - Skin/Abscess/Foreign Bdy General Chief complaint: Skin/Abscess/Foreign Body Stated complaint: ring worm on scalp Time Seen by Provider: 12/25/23 17:40 Source: patient Mode of arrival: ambulatory Limitations: no limitations History of Present Illness HPI narrative: Miroslava is a 38-year-old female patient presenting to the clinic today with complaints of possible ringworm on the top of her scalp. She reports that she was seeing her hairdresser this evening in the hairdresser noted a spot that looked like ringworm to the back/top of head. She denies any itching or any hair loss in this area. Has not been around anyone who has had ringworm. Related Data Home Medications Medication Instructions Recorded Confirmed famotidine 20 mg tablet (Pepcid AC) 20 mg PO DAILY PRN Indigestion 06/04/22 12/25/23 progesterone micronized 200 mg 200 mg PO HS 12/25/23 12/25/23 capsule sertraline 50 mg tablet 50 mg PO DAILY 12/25/23 12/25/23 Allergies Allergy/AdvReac Type Severity Reaction Status Date / Time cefaclor AdvReac Mild Hives Verified 12/25/23 17:33 Review of Systems Review of Systems: CONSTITUTIONAL: Denies fever, chills, or sweats. EYES: Denies visual changes, redness, or discharge. ENT: Denies rhinorrhea, congestion, sore throat, or otalgia. CARDIOVASCULAR: Denies chest pain, palpitations, or edema. RESPIRATORY: Denies cough or dyspnea. GASTROINTESTINAL: Denies abdominal pain, nausea, vomiting, or diarrhea. GENITOURINARY: Denies dysuria or hematuria. SKIN: Denies rash or itching. MUSCULOSKELETAL: Denies back pain, joint pain, or myalgia. NEUROLOGIC: Denies headache, numbness, or weakness. PSYCHIATRIC: Denies anxiety or depression. [facility] Past Medical History Medical History Anxiety Bloating delivery delivered Fullness after eating GERD (gastroesophageal reflux disease) Surgical History Surgical History History of section X2 Family History Family History Father Alive and well Mother Alive and well Other No pertinent family history Social History Social History Smoking status: Never smoker Tobacco type: cigarettes Second hand tobacco smoke exposure: No Alcohol intake: current Substance use: never Substance use type: does not use Living arrangements: with family Occupation/Education: occupation Gender identity (if verbalized by the patient): Female Sexual Orientation (if Verbalized by the Patient): Straight or Heterosexual Spiritual care concerns: No Comments At the time of my signature, I reviewed and agree with the nursing past medical, surgical, social, and family history. There is no relevant family history pertinent to the patient complaint. Course Course Emergency Course: Portions of this record may have been created with voice recognition software. Level of Care: Express Care Visit Vital Signs Vital signs: Vital Signs Temperature 36.8 C 12/25/23 17:39 Pulse Rate 73 12/25/23 17:39 Respiratory Rate 16 12/25/23 17:39 Blood Pressure 124/80 12/25/23 17:39 Pulse Oximetry 100 12/25/23 17:39 Oxygen Delivery Room Air 12/25/23 17:39 Temperature 36.8 C 12/25/23 17:39 Pulse Rate 73 12/25/23 17:39 Respiratory Rate 16 12/25/23 17:39 Blood Pressure 124/80 12/25/23 17:39 Pulse Oximetry 100 12/25/23 17:39 Oxygen Delivery Room Air 12/25/23 17:39 Vital signs reviewed MDM - Skin/Abscess/Foreign Bdy MDM Narrative Medical decision making narrative: At the time of visit patient is resting comfortably on the exam table. Patient appears to be nontoxic. Plan: I suspect patient possibly has tinea capitis. Prescription for terbinafine was sent to the pharmacy. Will have patient fo
== END 2023-12-25 18:02 | disposition home or self-care (01) ==
PROVIDERS: Emergency Provider Nurse Practitioner Family; PCP Physician Assistant Medical
DX: B35.0 Tinea barbae and tinea capitis (principal); K21.9 Gastro-esophageal reflux disease without esophagitis
CPT/HCPCS: 99213; G0463

== ENCOUNTER 2024-04-23 18:36 | Emergency (ER) | payer OTHER, SELFPAY ==
[2024-04-23 18:46] VITALS: BP 119/79; PULSE 83; RESP 16; TEMP 36.6; O2SAT 100
--- NOTE | 2024-04-23 19:42 | ED.URI ---
HPI - URI/Sore Throat General Chief Complaint: Upper Respiratory Infection Stated Complaint: Sinus Infection Symptoms Time Seen by Provider: 04/23/24 18:52 Source: patient and RN notes reviewed Mode of arrival: ambulatory Limitations: no limitations History of Present Illness HPI Narrative: Patient presents today complaining of a 3 week history of chest congestion, nasal congestion, rhinorrhea, headache, body aches. After 2-3 days of onset of symptoms, patient took a Z-Teofilo she had at home. This did not provide any relief. She has also tried Mucinex, Excedrin, and ibuprofen with little relief. Reports previous cough has resolved. Denies fever. Related Data Home Medications Medication Instructions Recorded Confirmed famotidine 20 mg tablet (Pepcid AC) 20 mg PO DAILY PRN Indigestion 06/04/22 12/25/23 progesterone micronized 200 mg 200 mg PO HS 12/25/23 12/25/23 capsule sertraline 50 mg tablet 50 mg PO DAILY 12/25/23 12/25/23 Allergies Allergy/AdvReac Type Severity Reaction Status Date / Time cefaclor AdvReac Mild Hives Verified 12/25/23 17:33 Review of Systems Review of Systems: CONSTITUTIONAL: Denies fever, chills, or sweats.+ body aches EYES: Denies visual changes, redness, or discharge. ENT: Denies rhinorrhea, or otalgia.+ congestion, sore throat, facial pressure CARDIOVASCULAR: Denies chest pain, palpitations, or edema. RESPIRATORY: Denies cough or dyspnea.+ chest congestion GASTROINTESTINAL: Denies abdominal pain, nausea, vomiting, or diarrhea. GENITOURINARY: Denies dysuria or hematuria. SKIN: Denies rash, itching, or wounds. MUSCULOSKELETAL: Denies back pain, joint pain, or myalgia. NEUROLOGIC: Denies numbness, tingling, or weakness.+ headache, dizziness PSYCH: Denies depression or anxiety. [facility] Past Medical History Medical History Anxiety Bloating delivery delivered Fullness after eating GERD (gastroesophageal reflux disease) Surgical History Surgical History History of section X2 Family History Family History Father Alive and well Mother Alive and well Other No pertinent family history Social History Social History Smoking status: Never smoker Tobacco type: cigarettes Second hand tobacco smoke exposure: No Alcohol intake: current Substance use: never Substance use type: does not use Living arrangements: with family Occupation/Education: occupation Gender identity (if verbalized by the patient): Female Sexual Orientation (if Verbalized by the Patient): Straight or Heterosexual Spiritual care concerns: No Comments At time of signature, I have reviewed and agree with nursing past medical, surgical, social and family history unless otherwise noted. Please see nursing chart for further information. There is no relevant family history pertinent to the presenting complaint Exam Narrative: GENERAL: Mildly ill-appearing, well-nourished, and in no acute distress. HEAD: Normocephalic, atraumatic. EYES: EOMI. No redness or drainage. Conjunctivae normal. ENT: Mucous membranes pink and moist. Nares congested. No rhinorrhea. Bilateral nasal turbinates are erythematous and edematous. Bilateral maxillary sinus tenderness. TMs normal bilaterally. Throat normal. Uvula midline. NECK: Normal AROM. Supple. No lymphadenopathy. CHEST: No respiratory distress. Clear to auscultation. HEART: Regular rate and rhythm. No murmur appreciated. EXTREMITIES: Normal range of motion. No edema. SKIN: Warm, dry, no rash. Capillary refill normal. Normal skin turgor. NEURO: No focal deficits. Alert and oriented x3. Gait steady. PSYCH: Normal affect. No signs of depression or anxiety. Course Course Level of Care: Express Care Visit Vital Signs Vital signs: Vital Signs Temperature 98 F 04/23/24 18:46 Pulse Rate 83 04/23/24 18:46 Respiratory Rate 16 04/23/24 18:46 Blood Pressure 119/79 04/23/24 18:46 Pulse Oximetry 100 04/23/24 18:46 Temperature 98 F 04/23/24 18:46 Pulse Rate 83 04/23/24 18:46 Respiratory Rate 16 04/23/24 18:46 Blood Pressure 119/79 04/23/24 18:46 Pulse Oximetry 100 04/23/24 18:46 Reviewed MDM - URI/Sore Throat MDM Narrative Medical decision making narrative: Patient will be treated for sinusitis with Augmentin and prednisone. Anticipatory guidance given. Differential Diagnosis Differential diagnosis: Likely upper respiratory infection, sinusitis and viral infection Critical Care Time Critical Care Time Critical Care Time: No Discharge Plan Discharge Clinical Impression: Sinusitis Patient Disposition: Home, Self-Care Condition: Stable Instructions: Antibiotic Form, Sinusitis (ED) Additional Instructions: Please take the Augmentin and prednisone as directed. You may consider a decongestant such as Sudafed or an intranasal steroid such as Flonase for symptoms. Follow-up with your PCP in 3 days if symptoms are not improving. Prescriptions: New prednisone 20 mg tablet 40 mg PO DAILY 5 Days Qty: 10 0RF amoxicillin-pot clavulanate 875-125 mg tablet 1 tablet PO Q12H 7 Days Qty: 14 0RF No Action progesterone micronized 200 mg capsule 200 mg PO HS sertraline 50 mg tablet 50 mg PO DAILY terbinafine HCl 250 mg tablet 250 mg PO DAILY 42 Days Qty: 42 0RF famotidine [Pepcid AC] 20 mg Tablet 20 mg PO DAILY PRN (Reason: Indigestion) clonazepam 0.5 mg tablet 0.5 mg PO DAILY Qty: 30 0RF Follow-up/Referrals: Romina Martini PA-C [Primary Care Provider] - Time of Disposition: 19:10
== END 2024-04-23 19:13 | disposition home or self-care (01) ==
PROVIDERS: Emergency Provider Nurse Practitioner; PCP Physician Assistant Medical
DX: J32.9 Chronic sinusitis, unspecified (principal); K21.9 Gastro-esophageal reflux disease without esophagitis; F41.9 Anxiety disorder, unspecified
CPT/HCPCS: 99213; G0463